=== PATIENT | male | born 1965 ===

== ENCOUNTER 2020-09-11 09:11 | Outpatient (CLI) | payer OTHER, MEDICARE ==
--- NOTE | 2020-09-11 10:20 | XRAY Report ---
PROCEDURE: Chest 2 View X-Ray INDICATIONS: COUGH, LEUKOCYTOSIS TECHNIQUE: 2 views of the chest. COMPARISON: Chest radiographs 03/23/2007 FINDINGS: Surgical changes and devices: None. Lungs and pleura: No pleural effusions or pneumothorax. Lungs are clear. Mediastinum: Mediastinal contours are normal. Heart size is normal. Bones and chest wall: No suspicious bony abnormalities. Soft tissues appear unremarkable. Age-rela jovanna degenerative changes are seen in spine. IMPRESSION: No acute cardiopulmonary abnormality. Reviewed by: Bret Ray MD on 09/11/2020 10:18 AM [facility] Approved by: Bret Ray MD on 09/11/2020 10:18 AM [facility] Station ID: [id number]
== END 2020-09-11 23:59 | disposition home or self-care (01) ==
LOC: DI.WCP 09:11
PROVIDERS: ATTEND Family Medicine
DX: R05 Cough (principal); D72.829 Elevated white blood cell count, unspecified

== ENCOUNTER → 2020-09-11 | Outpatient (CLI) | payer OTHER, MEDICARE | LOC: LAB.R 08:50 | PROVIDERS: ATTEND Family Medicine | DX: R05 Cough (principal); Z20.822 Contact with and (suspected) exposure to COVID-19 ==

== ENCOUNTER 2021-03-11 15:56 | Outpatient (CLI) | payer OTHER, MEDICARE | END 2021-03-11 15:57 | disposition critical access hospital (66) | LOC: EMS 15:56 | DX: S01.81XA Laceration without foreign body of other part of head, initial encounter (principal); S01.112A Laceration without foreign body of left eyelid and periocular area, initial encounter; W17.89XA Other fall from one level to another, initial encounter; Y93.89 Activity, other specified; Y92.521 Bus station as the place of occurrence of the external cause | CPT/HCPCS: A0425; A0427 ==

== ENCOUNTER 2021-03-11 16:11 | Emergency (ER) | payer OTHER, MEDICARE ==
[2021-03-11 16:54] LABS: BASOPHILS # (AUTO) 0.1 10^3/uL (0.0-0.1); BASOPHILS % (AUTO) 0.9 %; EOSINOPHILS # (AUTO) 0.1 10^3/uL (0.0-0.7); EOSINOPHILS % (AUTO) 0.5 %; HCT - HEMATOCRIT 40.6 % (42.0-52.0); LYMPHOCYTES # (AUTO) 2.1 10^3/uL (1.5-3.5); LYMPHOCYTES % (AUTO) 19.4 %; MEAN CORPUSCULAR HEMOGLOBIN 30.3 pg (27.0-31.0); MEAN CORPUSCULAR HGB CONC 34.5 g/dL (32.0-36.0); MEAN CORPUSCULAR VOLUME 87.9 fL (80.0-94.0); MEAN PLATELET VOLUME 9.2 fL (7.4-11.4); MONOCYTES # (AUTO) 0.7 10^3/uL (0.0-1.0); MONOCYTES % (AUTO) 6.1 %; NEUTROPHILS # (AUTO) 7.9 10^3/uL (1.5-6.6); NEUTROPHILS % (AUTO) 72.7 %; PLT - PLATELET COUNT 240 10^3/uL (130-450); RED BLOOD COUNT 4.62 10^6/uL (4.70-6.10); RED CELL DISTRIBUTION WIDTH 13.2 % (12.0-15.0); WHITE BLOOD COUNT 10.9 x10^3/uL (4.8-10.8)
[2021-03-11 17:08] LABS: ACETAMINOPHEN < 10 ug/mL (10-30); ALBUMIN 4.4 g/dL (3.2-5.5); ALBUMIN/GLOBULIN RATIO 1.4 (1.0-2.2); ALKALINE PHOSPHATASE 51 IU/L (42-121); ALT ALANINE AMINOTRANSFERASE 16 IU/L (10-60); AST ASPARTATE AMINOTRANSFERASE 15 IU/L (10-42); BILIRUBIN,TOTAL 0.6 mg/dL (0.2-1.0); BUN - BLOOD UREA NITROGEN 10 mg/dL (6-20); CALCIUM 8.9 mg/dL (8.5-10.3); CARBON DIOXIDE - CO2 22 mmol/L (21-32); CHLORIDE 100 mmol/L (101-111); CREATININE 0.8 mg/dL (0.6-1.2); ETOH - ETHANOL 275.8 mg/dL; GFR - MDRD 101 (>89); GLUCOSE 116 mg/dL (70-100); LIPASE 21 U/L (22-51); POTASSIUM 3.8 mmol/L (3.5-5.0); SALICYLATE < 6.0 mg/dL; SODIUM 135 mmol/L (135-145); TOTAL PROTEIN 7.5 g/dL (6.7-8.2)
--- NOTE | 2021-03-11 17:51 | ED Physician Documentation ---
History of Present Illness - Stated complaint Stated Complaint: GLF - Chief complaint Chief Complaint: Trauma Hd/Nk - History obtained from History obtained from: Patient, EMS - History of Present Illness Timing: Today Pain level max: 0 Pain level now: 0 - Additonal information Additional information: 56-year-old male states that he was at the bus stop today when he stood up and fell striking the forehead and front of face. He has been drinking heavily today and utilizing marijuana. He denies any pain. Nothing makes it better or worse. Place in a c-collar by EMS Review of Systems Ten Systems: 10 systems reviewed and negative Constitutional: denies: Fever, Chills Nose: denies: Rhinorrhea / runny nose, Congestion GI: denies: Vomiting, Diarrhea Skin: denies: Rash Musculoskeletal: denies: Neck pain, Back pain Neurologic: denies: Headache PD PAST MEDICAL HISTORY - Past Medical History Past Medical History: No - Past Surgical History Past Surgical History: No - Allergies Allergies/Adverse Reactions: Allergies Allergy/AdvReac Type Severity Reaction Status Date / Time No Known Drug Allergies Allergy Verified 03/11/21 16:21 - Living Situation Living Arrangement: reports: At home - Social History Does the pt smoke?: Yes Smoking Status: Current every day smoker Does the pt drink ETOH?: Yes Does the pt have substance abuse?: Yes Substance Use and Type: Marijuana - Family History Family history: reports: Non contributory - Immunizations Immunizations are current?: No - POLST Patient has POLST: No PD ED PE NORMAL - Vitals Vital signs reviewed: Yes - General General: No acute distress, Well developed/nourished, Other (alert, intoxicated, but following commands) - HEENT HEENT: PERRL, Other (abrasions to the forehead. C-collar in place) - Neck Neck: Supple, no meningeal sign, No bony TTP - Cardiac Cardiac: RRR - Respiratory Respiratory: No respiratory distress, Clear bilaterally - Abdomen Abdomen: Soft, Non tender, Non distended - Derm Derm: Warm and dry - Extremities Extremities: Normal ROM s pain - Neuro Neuro: No motor deficit, No sensory deficit, Other (alert, oriented to person and place. not to time. ) Eye Opening: Spontaneous Motor: Obeys Commands Verbal: Confused GCS Score: 14 Results - Vitals Vitals: Vital Signs - 24 hr 03/11/21 03/11/21 16:21 20:42 Temperature 36.7 C Heart Rate 103 H 98 Respiratory 22 18 Rate Blood Pressure 138/93 H 142/88 H O2 Saturation 96 98 Oxygen O2 Source Room air - Labs Labs: Laboratory Tests 03/11/21 03/11/21 03/11/21 16:48 16:48 16:48 WBC 10.9 H RBC 4.62 L Hgb 14.0 Hct 40.6 L MCV 87.9 MCH 30.3 MCHC 34.5 RDW 13.2 Plt Count 240 MPV 9.2 Neut # (Auto) 7.9 H Lymph # (Auto) 2.1 [place] # (Auto) 0.7 Eos # (Auto) 0.1 Baso # (Auto) 0.1 Absolute Nucleated RBC 0.00 Nucleated RBC % 0.0 Sodium 135 Potassium 3.8 Chloride 100 L Carbon Dioxide 22 Anion Gap 13.0 BUN 10 Creatinine 0.8 Estimated GFR (MDRD) 101 Glucose 116 H Calcium 8.9 Total Bilirubin 0.6 AST 15 ALT 16 Alkaline Phosphatase 51 Total Protein 7.5 Albumin 4.4 Globulin 3.1 Albumin/Globulin Ratio 1.4 Lipase 21 L TSH 0.92 Salicylates < 6.0 Acetaminophen < 10 L Ethyl Alcohol 275.8 - Rads (name of study) head CT Radiology: Final report received, EMP read contemporaneously, See rad report (No acute abnormality) c-spine Ct Radiology: Final report received, EMP read contemporaneously, See rad report (No acute abnormality) PD MEDICAL DECISION MAKING - ED course Complexity details: reviewed results, re-evaluated patient, considered differential, d/w patient ED course: 56-year-old male status post a ground-level fall today while intoxicated. No acute findings on head CT or cervical spine CT. Tetanus is up-to-date. Wounds were cleansed and bandaged. Patient is ambulating with a steady gait. Request to go home at this time. He is not driving. His family will reportedly pick him up. Patient counseled regarding signs and symptoms for which I believe and urgent re-evaluation would be necessary. Patient with good understanding of and agreement to plan and is comfortable going home at this time This document was made in part using voice recognition software. While efforts are made to proofread this document, sound alike and grammatical errors may occur. Departure - Departure Disposition: 01 Home, Self Care Clinical Impression: Alcohol intoxication Qualifiers: Complication of substance-induced condition: uncomplicated Qualified Code(s): F10.920 - Alcohol use, unspecified with intoxication, uncomplicated Facial abrasion Qualifiers: Encounter type: initial encounter Qualified Code(s): S00.81XA - Abrasion of other part of head, initial encounter Closed head injury Qualifiers: Encounter type: initial encounter Qualified Code(s): S09.90XA - Unspecified injury of head, initial encounter Condition: Good Instructions: ED Abrasion, ED Alcohol Intoxication, ED Head Injury Closed Follow-Up: Rabia Lopez DO [Primary Care Provider] - Within 1 week Comments: There are no acute findings on your head CT or cervical spine CT. Please follow-up with your doctor for further care. Discharge Date/Time: 03/11/21 20:43
--- NOTE | 2021-03-11 20:33 | CT Report ---
PROCEDURE: HEAD WO INDICATIONS: fall, head/neck injury. intoxicated TECHNIQUE: Noncontrast 4.5 mm thick angled axial sections acquired from the foramen magnum to the vertex. For r adiation dose reduction, the following was used: automated exposure control, adjustment of mA and/or kV according to patient size. COMPARISON: None. FINDINGS: Image quality: Excellent. CSF spaces: Basal cisterns are patent. No extra-axial fluid collections. Ventricles are normal in size and shape. Brain: No midline shift. No intracranial masses or hemorrhage. Johnson-white matter interface is norm al. Skull and face: Calvarium and visualized facial bones are intact, without suspicious lesions. Left frontal scalp swelling. There is also right parietal scalp swelling. Sinuses: Visualized sinuses and mastoids are clear except for mild right maxillary sinus disease, an d mucous retention cysts.. Presumed cerumen/debris within the both of the external auditory canals a lthough recommend direct visual inspection to exclude soft tissue mass. IMPRESSION: Left frontal and right parietal scalp swelling. No acute intracranial process. Reviewed by: Troy Salinas MD on 03/11/2021 8:31 PM PDT Approved by: Troy Salinas MD on 03/11/2021 8:31 PM PDT Station ID: [id number]
--- NOTE | 2021-03-11 20:38 | CT Report ---
PROCEDURE: CERVICAL SPINE WO INDICATIONS: fall, head/neck injury. intoxicated TECHNIQUE: Noncontrast 3 mm thick sections acquired from the skull base to the T4 level. Sagittal and coronal r eformats were then constructed. For radiation dose reduction, the following was used: automated exp osure control, adjustment of mA and/or kV according to patient size. COMPARISON: None. FINDINGS: Image quality: Excellent. Bones: No fractures or dislocations. Mid to lower cervical spondylosis. Straightening of the normal lordotic curvature. Visualized superior ribs are intact. Soft tissues: Prevertebral soft tissues are normal in thickness. No paravertebral hematomas. No ap ical pneumothoraces. IMPRESSION: No fracture. Mid to lower cervical spondylosis and facet arthropathy. Reviewed by: Troy Salinas MD on 03/11/2021 8:36 PM PDT Approved by: Troy Salinas MD on 03/11/2021 8:36 PM PDT Station ID: [id number]
[2021-03-11 20:43] VITALS: BP 142/88
== END 2021-03-11 20:43 | disposition home or self-care (01) ==
LOC: EDUNIT# → ED 16:11
DX: S00.81XA Abrasion of other part of head, initial encounter (principal); S09.90XA Unspecified injury of head, initial encounter; W18.39XA Other fall on same level, initial encounter; Y92.521 Bus station as the place of occurrence of the external cause; F10.920 Alcohol use, unspecified with intoxication, uncomplicated; M47.812 Spondylosis without myelopathy or radiculopathy, cervical region; F17.200 Nicotine dependence, unspecified, uncomplicated
CPT/HCPCS: 36415; 80053; 80307; 80320; 80329; 83690; 84443; 85025; 99282; 99284